=== PATIENT | female | born 1970 | race Caucasian/White ===

== ENCOUNTER 2017-11-13 12:29 | Observation (INO) | payer OTHER ==
--- NOTE | 2017-11-13 12:59 | PDOC ---
Attending Attestation - HPI HPI: Patient is a 46 F with a PMHx of ulcerative colitis and hyperlipidemia who presents with sudden blurry vision and lightheadedness while on computer at work. She states vision improves when looking down, worse when looking upward and admits to some discomfort when moving her eyes. She states that her vision improves when looking downward and has some discomfort upon moving her eyes. Recently weaned off a course of steroid (rectal foam) on Saturday due to bleeding from her UC. Denies any current headache. <Cesia Alvarez - Last Filed: 11/13/17 16:41> - Resident Resident Name: Nomi Louise - ED Attending Attestation I have performed the following: I have examined & evaluated the patient, The case was reviewed & discussed with the resident, I agree w/resident's findings & plan, Exceptions are as noted - Physicial Exam PE: 11/13/17 16:42 Patient is awake and alert, well-nourished, in no distress normocephalic and atraumatic PERRLA, EOMI, no nystagmus, visual grewal are intact bilaterally Neck supple CTA Cranial nerves II through XII are grossly intact; motor is 5 of 54; no pronation drift; gait is stable - Medical Decision Making 11/13/17 16:43 46-year-old female with history of ulcerative colitis and hyperlipidemia presents to the ER with several days of lightheadedness and blurry vision that is associated with upward gaze with symptoms resolved upon downward gaze. Patient also reports pain with eye movements bilaterally. In the ER, patient is awake and alert, afebrile, without focal neurological deficits. CT of head shows no evidence of acute intracranial pathology. Outside ultrasound of the optic nerves reveals a right 1 measuring 0.6 and a left lung measuring 0.7 cm. These findings are consistent with increased ICP. 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 We'll perform a lumbar puncture after taking any consent to rule out ICP if opening pressure is elevated, we'll consider acetazolamide and admission for further evaluation by neurology. <Yamil Oshea - Last Filed: 11/13/17 16:45>
[2017-11-13 14:16] LABS: BASO % 0.7 % (0-2.0); EOS % 0.7 % (0-4.5); HEMATOCRIT 36.1 % (32.4-45.2); HEMOGLOBIN 12.1 GM/dL (10.7-15.3); LYMPH % 27.4 % (8-40); MCH 29.7 pg (25.7-33.7); MCHC 33.5 g/dl (32.0-36.0); MEAN CELL VOLUME 88.5 fl (80-96); MEAN PLT VOLUME 9.5 fl (7.5-11.1); NEUT % 64.2 % (42.8-82.8); PLATELET COUNT 262 K/MM3 (134-434); RBC 4.08 M/mm3 (3.60-5.2); RDW 13.7 % (11.6-15.6); WHITE BLOOD COUNT 7.7 K/mm3 (4.0-10.0)
[2017-11-13] MEDS ORDERED: LORazepam 1 MG TABLET PO ONE (14:22)
[2017-11-13] MEDS ORDERED: LORazepam 0.5 MG TABLET ONE (14:33)
[2017-11-13 14:45] LABS: ALBUMIN 3.8 g/dl (3.4-5.0); ANION GAP 10 MMOL/L (8-16); BLOOD UREA NITROGEN 5 mg/dL (7-18); CALCIUM 9.1 mg/dL (8.5-10.1); CHLORIDE 105 mmol/L (98-107); CO2 24 mmol/L (21-32); GLUCOSE,RANDOM 92 mg/dL (74-106); SODIUM 139 mmol/L (136-145)
--- NOTE | 2017-11-13 14:47 | PDOC ---
History of Present Illness - General Chief Complaint: Headache Stated Complaint: Lightheaded Time Seen by Provider: 11/13/17 12:43 - History of Present Illness Initial Comments: 11/13/17 14:52 46F with pmh of ulcerative colitis and hyperlipidemia present with sudden blurry vision and lightheadedness while on computer at work. She states that he vision improves when looking downward and has some discomfort upon moving her eyes. Denies any headache. Recently weaned off a course of rectal foam steroid on Saturday due to bleeding from her UC. 11/13/17 18:32 Past History - Past Medical History Allergies/Adverse Reactions: Allergies Allergy/AdvReac Type Severity Reaction Status Date / Time No Known Allergies Allergy Verified 11/13/17 12:56 Home Medications: Ambulatory Orders Mesalamine [Lialda] 4.8 gm PO DAILY 11/13/17 COPD: No GI Disorders: Yes (ulcerative colitis) Hypercholesterolemia: Yes - Suicide/Smoking/Psychosocial Hx Smoking History: Never smoked Have you smoked in the past 12 months: No Information on smoking cessation initiated: No Hx Alcohol Use: No Drug/Substance Use Hx: No Substance Use Type: None Review of Systems - Review of Systems Able to Perform ROS?: Yes Is the patient limited Swedish proficient: No Constitutional: No: Symptoms Reported HEENTM: Yes: See HPI, Eye Pain, Blurred Vision Respiratory: No: Symptoms reported Cardiac (ROS): No: Symptoms Reported ABD/GI: No: Symptoms Reported : No: Symptoms Reported Musculoskeletal: No: Symptoms Reported Integumentary: No: Symptoms Reported Neurological: Yes: See HPI All Other Systems: Reviewed and Negative *Physical Exam - Vital Signs Last Vital Signs Temp Pulse Resp BP Pulse Ox 97.9 F 86 16 118/78 100 11/13/17 12:30 11/13/17 14:29 11/13/17 12:30 11/13/17 14:29 11/13/17 12:30 - Physical Exam General Appearance: Yes: Nourished, Appropriately Dressed. No: Apparent Distress HEENT: positive: EOMI, QUOC, Normal ENT Inspection, Other (normal field of vision and ROM). negative: Pale Conjunctivae, Photophobia, Sinus Tenderness, Hearing Decreased Respiratory/Chest: positive: Lungs Clear, Normal Breath Sounds. negative: Chest Tender, Respiratory Distress Cardiovascular: positive: Regular Rhythm, Regular Rate, S1, S2 Gastrointestinal/Abdominal: positive: Normal Bowel Sounds, Flat, Soft. negative : Tender Extremity: positive: Normal Capillary Refill, Normal Inspection, Normal Range of Motion Integumentary: positive: Normal Color, Dry, Warm Neurologic: positive: Fully Oriented, Alert, Normal Mood/Affect, Normal Response , Motor Strength 5/5 Procedures - Lumbar Puncture Indication: Pseudotumor Cerebri, Demyelinating Condition CT Scan: Yes Betadine Prep: Yes Position: Right lateral decubitus Site: L4-L51 Local Anesthesia: 2% Lidocaine w/ epi Lumbar Puncture Kit: Adult Opening Pressure(mmHg): 11 Traumatic Tap: No Tubes Obtained: 4 Clear Fluid: Yes Complications: No ED Treatment Course - LABORATORY CBC & Chemistry Diagram: 11/13/17 14:07 11/13/17 14:07 - ADDITIONAL ORDERS Additional order review: Laboratory Results 11/13/17 14:07 Serum , Qual Negative 11/13/17 14:07 RBC 4.08 MCV 88.5 MCHC 33.5 RDW 13.7 MPV 9.5 Neutrophils % 64.2 Lymphocytes % 27.4 Monocytes % 7.0 Eosinophils % 0.7 Basophils % 0.7 - RADIOLOGY Radiology Studies Ordered: Category Date Time Status HEAD CT WITHOUT CONTRAST [CT] Stat CT Scan 11/13/17 13:09 Ordered - Medications Given in the ED: ED Medications Discontinued Medications Generic Name Dose Route Start Last Admin Trade Name Freq PRN Reason Stop Dose Admin Lorazepam 1 mg 11/13/17 14:22 11/13/17 14:37 Ativan - PO 11/13/17 14:23 1 mg ONCE ONE Administration Medical Decision Making - Medical Decision Making 11/13/17 18:33 MS vs Pseudotumor cerebri vs posterior stroke vs orthostatic hypotension 11/13/17 19:34 Irthostatic vital sign WNL Negative CT head, LP sucessful. Opening pressure at 11, rules out ICH. Testing for oligoclonal bands. Will admit for MRI tomorrow. *DC/Admit/Observation/Transfer Diagnosis at time of Disposition: Vision changes, Dizziness - Discharge Dispostion Condition at time of disposition: Guarded - Referrals - Patient Instructions - Post Discharge Activity
[2017-11-13 14:57] LABS: ALK PHOS 49 U/L (45-117); BILIRUBIN,TOTAL 0.3 mg/dL (0.2-1.0); CREATININE 0.5 mg/dL (0.55-1.02); SGOT/AST 27 U/L (15-37); SGPT/ALT 36 U/L (12-78); TOT PROT 7.4 g/dl (6.4-8.2)
[2017-11-13 17:08] LABS: INR 1.1 (0.83-1.09); PROTHROMBIN TIME (PATIENT) 12.4 SEC (9.7-13.0)
[2017-11-13 17:10] LABS: ACTIVATED PTT 30.8 SECONDS (25.2-36.5)
[2017-11-13] MEDS ORDERED: LIDOCAINE HCL 2% (20ML MULTI-DOSE VIAL) NR ONE (17:40)
[2017-11-13 19:28] LABS: CSF APPEARANCE CLEAR
[2017-11-13 19:29] LABS: CSF COLOR COLORLESS; CSF WBC 1
[2017-11-13 19:31] LABS: CSF APPEARANCE CLEAR; CSF COLOR COLORLESS; CSF WBC 0
--- NOTE | 2017-11-13 20:15 | HP ---
Admitting History and Physical - Primary Care Physician PCP: Imer Andujar - Admission History of Present Illness: 46 F with a PMHx of ulcerative colitis and hyperlipidemia who presents with sudden blurry vision and lightheadedness while on computer at work. She states vision improves when looking down, worse when looking upward and admits to some discomfort when moving her eyes. She states that her vision improves when looking downward and has some discomfort upon moving her eyes. Recently weaned off a course of steroid (rectal foam) on Saturday due to bleeding from her UC. Denies any current headache. - Past Medical History Cardiovascular: Yes: Hyperlipdemia - Smoking History Smoking history: Never smoked Have you smoked in the past 12 months: No - Alcohol/Substance Use Hx Alcohol Use: No Home Medications - Allergies Allergies/Adverse Reactions: Allergies Allergy/AdvReac Type Severity Reaction Status Date / Time No Known Allergies Allergy Verified 11/13/17 12:56 - Home Medications Home Medications: Ambulatory Orders Mesalamine [Lialda] 4.8 gm PO DAILY 11/13/17 Prilosec 30 mg PO DAILY 11/14/17 Rosuvastatin [Crestor -] 1 HS 11/14/17 Physical Examination Vital Signs: Vital Signs Temperature 98.7 F 11/13/17 18:17 Pulse Rate 72 11/13/17 20:07 Respiratory Rate 20 11/13/17 20:07 Blood Pressure 124/76 11/13/17 20:07 O2 Sat by Pulse Oximetry (%) 100 11/13/17 20:07 Constitutional: Yes: No Distress HENT: Yes: Atraumatic Neck: Yes: Supple Cardiovascular: Yes: Regular Rate and Rhythm Respiratory: Yes: CTA Bilaterally Gastrointestinal: Yes: Normal Bowel Sounds Extremities: Yes: WNL Edema: No Peripheral Pulses WNL: Yes Neurological: Yes: Alert, Oriented ...Motor Strength: WNL Labs: CBC, BMP 11/13/17 14:07 11/13/17 14:07 Problem List - Problems (1) Dizziness Assessment/Plan: better for MRI Code(s): R42 - DIZZINESS AND GIDDINESS (2) Vision changes Assessment/Plan: monitor neuro consult Code(s): H53.9 - UNSPECIFIED VISUAL DISTURBANCE Assessment/Plan Laboratory Tests 11/13/17 11/13/17 11/13/17 14:07 14:07 14:07 WBC 7.7 RBC 4.08 Hgb 12.1 Hct 36.1 MCV 88.5 MCH 29.7 MCHC 33.5 RDW 13.7 Plt Count 262 MPV 9.5 Absolute Neuts (auto) 4.9 Neutrophils % 64.2 Lymphocytes % 27.4 Monocytes % 7.0 Eosinophils % 0.7 Basophils % 0.7 Nucleated RBC % 0 PT with INR INR PTT (Actin FS) Sodium 139 Potassium 4.0 Chloride 105 Carbon Dioxide 24 Anion Gap 10 BUN 5 L Creatinine 0.5 L Creat Clearance w eGFR > 60 Random Glucose 92 Calcium 9.1 Total Bilirubin 0.3 AST 27 ALT 36 Alkaline Phosphatase 49 Total Protein 7.4 Albumin 3.8 TSH 0.72 Serum , Qual Negative CSF Appearance CSF Color CSF WBC CSF RBC CSF Neutrophils CSF Lymphocytes CSF Eosinophils CSF Basophils CSF Macrophages CSF Plasma Cells CSF Diff Comment CSF Comment CSF Glucose CSF Total Protein 11/13/17 11/13/17 11/13/17 16:40 18:00 18:00 WBC RBC Hgb Hct MCV MCH MCHC RDW Plt Count MPV Absolute Neuts (auto) Neutrophils % Lymphocytes % Monocytes % Eosinophils % Basophils % Nucleated RBC % PT with INR 12.40 INR 1.10 H PTT (Actin FS) 30.8 Sodium Potassium Chloride Carbon Dioxide Anion Gap BUN Creatinine Creat Clearance w eGFR Random Glucose Calcium Total Bilirubin AST ALT Alkaline Phosphatase Total Protein Albumin TSH Serum , Qual CSF Appearance Clear Clear CSF Color Colorless Colorless CSF WBC 1 0 CSF RBC 265 65 CSF Neutrophils No Result Required. No Result Required. CSF Lymphocytes No Result Required. No Result Required. CSF Eosinophils No Result Required. No Result Required. CSF Basophils No Result Required. No Result Required. CSF Macrophages No Result Required. No Result Required. CSF Plasma Cells No Result Required. No Result Required. CSF Diff Comment No Result Required. No Result Required. CSF Comment Tube #1 Tube #4 CSF Glucose No Result Required. CSF Total Protein No Result Required. Active Medications Generic Name Dose Route Start Last Admin Trade Name Freq PRN Reason Stop Dose Admin Acetaminophen 650 mg 11/13/17 20:17 Tylenol - PO Q6H PRN FEVER Non-Formulary Medication 4.8 gm 11/14/17 10:00 Mesalamine [Lialda] PO DAILY TEVIN
[2017-11-13] MEDS ORDERED: ACETAMINOPHEN 325 MG TABLET (FP) PO PRN (20:17)
[2017-11-13 21:38] LABS: GLUCOSE,CSF 57 mg/dL (50-80)
[2017-11-13 23:43] VITALS: BMI 24.8
--- NOTE | 2017-11-14 08:49 | CON.NEURO ---
Consult Consult Specialty:: NEUROLOGY-TAISHA GALLEGOS - History of Present Illness History of Present Illness: 46 F with a PMHx of ulcerative colitis and hyperlipidemia who presents with sudden blurry vision and lightheadedness while on computer at work. She states vision improves when looking down, worse when looking upward and admits to some discomfort when moving her eyes. She states that her vision improves when looking downward and has some discomfort upon moving her eyes. Recently weaned off a course of steroid (rectal foam) on Saturday due to bleeding from her UC. She describes yesterday sudden onset of palpitaions, pressure sensation across forehead and dizziness with clouded consciousness and "dimming of vision" bilaterally lasting seconds during which she was unaware of environment. She has had palpitations x 1 year, intermittent-Echocardiogram 2 weaks ago reports was without abn. CT head without abn. CSF- - Past Medical History Cardio/Vascular: Yes: Hyperlipdemia - Alcohol/Substance Use Hx Alcohol Use: No - Smoking History Smoking history: Never smoked Have you smoked in the past 12 months: No Home Medications - Allergies Allergies/Adverse Reactions: Allergies Allergy/AdvReac Type Severity Reaction Status Date / Time No Known Allergies Allergy Verified 11/13/17 12:56 - Home Medications Home Medications: Ambulatory Orders Mesalamine [Lialda] 4.8 gm PO DAILY 11/13/17 Physical Exam-Neuro Vital Signs: Vital Signs Temperature 98.1 F 11/14/17 07:55 Pulse Rate 72 11/14/17 07:55 Respiratory Rate 20 11/14/17 07:55 Blood Pressure 104/77 11/14/17 07:55 O2 Sat by Pulse Oximetry (%) 100 11/14/17 04:16 Labs: CBC, BMP 11/13/17 14:07 11/13/17 14:07 INR, PTT INR 1.10 (0.83-1.09) H 11/13/17 16:40 - Neuro Exam DTR's: 2+ Left Bicep, 2+ Right Bicep, 2+ Left Tricep, 2+ Right Tricep, 2+ Left Brachioradialis, 2+ Right Brachioradialis, 2+ Left Achilles, 2+ Right Achilles Motor Strength: 5/5: Left Arm, Right Arm, Left Leg, Right Leg
[2017-11-14] MEDS ORDERED: LORazepam 2 MG/ML SDV VIAL IM ONE (09:30)
[2017-11-14] MEDS ORDERED: MESALAMINE 4.8 GM PO SCH (10:00)
--- NOTE | 2017-11-14 15:49 | EKG ---
Test Reason : Blood Pressure : / mmHG Vent. Rate : 074 BPM Atrial Rate : 074 BPM P-R Int : 150 ms QRS Dur : 090 ms QT Int : 420 ms P-R-T Axes : 070 032 034 degrees QTc Int : 466 ms NORMAL SINUS RHYTHM NORMAL ECG NO PREVIOUS ECGS AVAILABLE Confirmed by Roxane Yung ([id number]) on 11/14/2017 3:48:40 PM Referred By: Confirmed By:Roxane Yung
--- NOTE | 2017-11-14 17:22 | PN ---
Progress Note, Physician - Current Medication List Current Medications: Active Medications Acetaminophen (Tylenol -) 650 mg PO Q6H PRN PRN Reason: FEVER Non-Formulary Medication (Mesalamine [Lialda]) 4.8 gm PO DAILY TEVIN - Objective Vital Signs: Vital Signs Temperature 98.5 F 11/14/17 14:00 Pulse Rate 86 11/14/17 09:47 Respiratory Rate 20 11/14/17 09:47 Blood Pressure 98/70 11/14/17 09:47 O2 Sat by Pulse Oximetry (%) 100 11/14/17 11:37 Constitutional: Yes: No Distress HENT: Yes: Atraumatic Neck: Yes: Supple Cardiovascular: Yes: Regular Rate and Rhythm Respiratory: Yes: CTA Bilaterally Gastrointestinal: Yes: Normal Bowel Sounds Extremities: Yes: WNL Neurological: Yes: Alert, Oriented Labs: CBC, BMP 11/13/17 14:07 11/13/17 14:07 INR, PTT INR 1.10 (0.83-1.09) H 11/13/17 16:40 Problem List - Problems (1) Dizziness Assessment/Plan: better for MRI Code(s): R42 - DIZZINESS AND GIDDINESS (2) Vision changes Assessment/Plan: mr i pending Code(s): H53.9 - UNSPECIFIED VISUAL DISTURBANCE
[2017-11-14] MEDS ORDERED: LORazepam 2 MG/ML SDV VIAL ONE (17:34)
--- NOTE | 2017-11-15 08:37 | PN ---
Progress Note, Physician History of Present Illness: 46 F with a PMHx of ulcerative colitis and hyperlipidemia who presents with sudden blurry vision and lightheadedness while on computer at work. She states vision improves when looking down, worse when looking upward and admits to some discomfort when moving her eyes. She states that her vision improves when looking downward and has some discomfort upon moving her eyes. Recently weaned off a course of steroid (rectal foam) on Saturday due to bleeding from her UC. She describes yesterday sudden onset of palpitaions, pressure sensation across forehead and dizziness with clouded consciousness and "dimming of vision" bilaterally lasting seconds during which she was unaware of environment. She has had palpitations x 1 year, intermittent-Echocardiogram 2 weaks ago reports was without abn. CT head without abn. -Today reports minimal dizziness only, is able to ambulate well. Denies HADLEY. -Pt. unable to have closed MRI Plan:D/C today, her condition is improved. Will arrange open MRI as outpt. and see her on Saturday 11/18 in my office for f/u. - Current Medication List Current Medications: Active Medications Acetaminophen (Tylenol -) 650 mg PO Q6H PRN PRN Reason: FEVER Non-Formulary Medication (Mesalamine [Lialda]) 4.8 gm PO DAILY TEVIN - Objective Vital Signs: Vital Signs Temperature 98.2 F 11/15/17 07:00 Pulse Rate 69 11/15/17 07:00 Respiratory Rate 18 11/15/17 07:00 Blood Pressure 105/68 11/15/17 07:00 O2 Sat by Pulse Oximetry (%) 100 11/14/17 20:00 Labs: CBC, BMP 11/13/17 14:07 11/13/17 14:07 INR, PTT INR 1.10 (0.83-1.09) H 11/13/17 16:40
[2017-11-15 11:42] VITALS: BP 126/78; PULSE 80; TEMP 98.4
--- NOTE | 2017-11-15 18:06 | DS ---
Physical Examination Vital Signs: Vital Signs Temperature 98.4 F 11/15/17 09:30 Pulse Rate 80 11/15/17 09:30 Respiratory Rate 16 11/15/17 09:30 Blood Pressure 126/78 11/15/17 09:30 O2 Sat by Pulse Oximetry (%) 97 11/15/17 09:30 Labs: CBC, BMP 11/13/17 14:07 11/13/17 14:07 Discharge Summary Reason For Visit: DIPLOPIA Condition: Guarded - Instructions Disposition: HOME - Home Medications Comprehensive Discharge Medication List: Ambulatory Orders Mesalamine [Lialda] 4.8 gm PO DAILY 11/13/17 Prilosec 30 mg PO DAILY 11/14/17 Rosuvastatin [Crestor -] 1 HS 11/14/17 n[place] home
== END 2017-11-15 10:03 | disposition home or self-care (01) ==
LOC: JER 12:29 → JERBED 18:00 → J6S 21:10
PROVIDERS: ADMIT Internal Medicine; ATTEND Internal Medicine
PROC: 009U3ZZ Drainage of Spinal Canal, Percutaneous Approach (ICD-10-PCS; principal; 2017-11-13)
DX: H53.2 Diplopia (principal); H53.8 Other visual disturbances; R42 Dizziness and giddiness; E78.5 Hyperlipidemia, unspecified; K51.90 Ulcerative colitis, unspecified, without complications; D64.9 Anemia, unspecified
CPT/HCPCS: 36415; 70450-TC; 80053; 82945; 83916; 84157; 84443; 84703; 85025; 85610; 85651; 85730; 87070; 87205; 93005; 93010; 99283-25; 99285-25; G0378